=== PATIENT | male | born 1945 | race Caucasian/White ===

== ENCOUNTER 2018-08-10 08:31 | Emergency (ER) | payer MEDICARE, BC ==
[~2018-08-10] VITALS: Ht 195.6 cm; Wt 104.3 kg
[~2018-08-10 08:31] MED LIST: AMLO5; ASPI325; Altoprev20 MG; ELIQUIS5 MG; MAGOXI400
[2018-08-10 10:17] LABS: BASOPHILS ABSOLUTE AUTO 0.03 K/mm3 (0.00-0.23); BASOPHILS PERCENT AUTO 0 % (0-2); EOSINOPHILS ABSOLUTE AUTO 0.01 K/mm3 (0.00-0.68); EOSINOPHILS PERCENT AUTO 0 % (0-6); Hematocrit 44.3 % (37.0-53.0); Hemoglobin 14.9 g/dL (13.5-17.5); IMMATURE GRAN ABSOLUTE AUTO 0.03 K/mm3 (0.00-0.10); IMMATURE GRAN PERCENT AUTO 0 % (0-1); LYMPHOCYTES ABSOLUTE AUTO 0.85 K/mm3 (0.84-5.20); LYMPHOCYTES PERCENT AUTO 10 % (21-46); MONOCYTES ABSOLUTE AUTO 1.05 K/mm3 (0.16-1.47); MONOCYTES PERCENT AUTO 13 % (4-13); Mean Corpuscular HGB 30.8 pg (26.0-34.0); Mean Corpuscular HGB Conc 33.6 g/dL (31.5-36.5); Mean Corpuscular Volume 92 fL (80-100); Mean Platelet Volume 10.2 fL (9.1-12.4); NEUTROPHILS ABSOLUTE AUTO 6.33 K/mm3 (1.96-9.15); NEUTROPHILS PERCENT AUTO 76 % (41-73); Platelet Count 175 K/mm3 (150-400); RDW Coefficient Variation 12.8 % (11.7-14.2); RDW Standard Deviation 43.3 fL (35.1-46.3); Red Blood Cell Count 4.84 M/mm3 (4.30-5.90)
[2018-08-10 10:29] LABS: Alanine Aminotransfer (ALT/SGP 25 U/L (12-78); Albumin, Blood 3.5 g/dL (3.4-5.0); Albumin/Globulin Ratio 0.9 (0.8-1.8); Alk Phos 45 U/L (50-136); Anion Gap 9 mmol/L (6-16); Aspartate Aminotrans (AST/SGOT 19 U/L (12-37); Bilirubin, Total 1.4 mg/dL (0.1-1.0); Blood Urea Nitrogen 17 mg/dL (8-24); Bun/Creatinine Ratio 18.1 (12.0-20.0); CO2, Blood 23 mmol/L (21-32); Calcium, Blood 8.2 mg/dL (8.5-10.1); Chloride, Blood 105 mmol/L (98-108); Creatinine, Blood 0.94 mg/dL (0.60-1.20); Glomerular Filtration Rate >60 (60-); Glucose, Blood 101 mg/dL (70-99); Potassium, Blood 4.2 mmol/L (3.5-5.5); Sodium, Blood 137 mmol/L (136-145); Total Protein, Blood 7.5 g/dL (6.4-8.2)
== END 2018-08-10 12:28 | disposition home or self-care (01) ==
LOC: ER 08:31
PROVIDERS: Emergency Medicine
DX: M25.462 Effusion, left knee (principal); I48.91 Unspecified atrial fibrillation; Z79.899 Other long term (current) drug therapy; Z79.01 Long term (current) use of anticoagulants
CPT/HCPCS: 36415; 80053; 85025; 85651; 86140; 99283

== ENCOUNTER 2018-08-26 00:04 | Day surgery (SDC) | payer MEDICARE, BC ==
[~2018-08-26 00:04] MED LIST changes: -AMLO5; +AMLO5 PO; -Altoprev20 MG; +Altoprev20 MG PO; -ELIQUIS5 MG; +ELIQUIS5 MG PO; -MAGOXI400; +MAGOXI400 PO
[2018-08-27] MEDS ORDERED: OXYC5 PO (09:18)
[2018-08-27] MEDS ORDERED: BACL10 PO (09:19)
== END 2018-08-26 22:40 | disposition home or self-care (01) ==
LOC: ATC 00:04
DX: T84.54XA Infection and inflammatory reaction due to internal left knee prosthesis, initial encounter (principal); B95.5 Unspecified streptococcus as the cause of diseases classified elsewhere
CPT/HCPCS: 96365; J0696

== ENCOUNTER 2018-08-27 00:26 | Day surgery (SDC) | payer MEDICARE, BC ==
[2018-08-27] MEDS ORDERED: OXYC5 PO (09:18)
[2018-08-27] MEDS ORDERED: BACL10 PO (09:19)
[2018-09-03] MEDS ORDERED: BISA10S PR (10:40)
[2018-09-03] MEDS ORDERED: DULCOLAX STOOL100 MG PO (10:42)
== END 2018-08-27 17:15 | disposition home or self-care (01) ==
LOC: ATC 00:26
DX: T84.54XA Infection and inflammatory reaction due to internal left knee prosthesis, initial encounter (principal); I10 Essential (primary) hypertension
CPT/HCPCS: 96365; J0696

== ENCOUNTER 2018-08-28 00:25 | Day surgery (SDC) | payer MEDICARE, BC ==
[~2018-08-28 00:25] MED LIST changes: +BACL10 PO; +OXYC5 PO
[2018-09-03] MEDS ORDERED: BISA10S PR (10:40)
[2018-09-03] MEDS ORDERED: DULCOLAX STOOL100 MG PO (10:42)
== END 2018-08-28 09:55 | disposition home or self-care (01) ==
LOC: ATC 00:25
DX: T84.54XA Infection and inflammatory reaction due to internal left knee prosthesis, initial encounter (principal); B95.5 Unspecified streptococcus as the cause of diseases classified elsewhere
CPT/HCPCS: 96365; J0696

== ENCOUNTER 2018-08-29 00:18 | Day surgery (SDC) | payer MEDICARE, BC ==
[2018-08-29 11:39] LABS: BASOPHILS ABSOLUTE AUTO 0.06 K/mm3 (0.00-0.23); BASOPHILS PERCENT AUTO 1 % (0-2); EOSINOPHILS ABSOLUTE AUTO 0.23 K/mm3 (0.00-0.68); EOSINOPHILS PERCENT AUTO 3 % (0-6); Hematocrit 37.7 % (37.0-53.0); Hemoglobin 11.9 g/dL (13.5-17.5); IMMATURE GRAN ABSOLUTE AUTO 0.03 K/mm3 (0.00-0.10); IMMATURE GRAN PERCENT AUTO 0 % (0-1); LYMPHOCYTES ABSOLUTE AUTO 0.97 K/mm3 (0.84-5.20); LYMPHOCYTES PERCENT AUTO 13 % (21-46); MONOCYTES ABSOLUTE AUTO 0.89 K/mm3 (0.16-1.47); MONOCYTES PERCENT AUTO 12 % (4-13); Mean Corpuscular HGB 29.6 pg (26.0-34.0); Mean Corpuscular HGB Conc 31.6 g/dL (31.5-36.5); Mean Corpuscular Volume 94 fL (80-100); Mean Platelet Volume 9.2 fL (9.1-12.4); NEUTROPHILS ABSOLUTE AUTO 5.04 K/mm3 (1.96-9.15); NEUTROPHILS PERCENT AUTO 70 % (41-73); Platelet Count 472 K/mm3 (150-400); RDW Coefficient Variation 12.5 % (11.7-14.2); RDW Standard Deviation 43.5 fL (35.1-46.3); Red Blood Cell Count 4.02 M/mm3 (4.30-5.90); White Blood Cell Count 7.22 K/mm3 (4.00-11.30)
[2018-08-29 12:01] LABS: Alanine Aminotransfer (ALT/SGP 52 U/L (12-78); Albumin, Blood 2.7 g/dL (3.4-5.0); Albumin/Globulin Ratio 0.6 (0.8-1.8); Alk Phos 66 U/L (50-136); Anion Gap 7 mmol/L (6-16); Aspartate Aminotrans (AST/SGOT 25 U/L (12-37); Bilirubin, Total 0.4 mg/dL (0.1-1.0); Blood Urea Nitrogen 10 mg/dL (8-24); Bun/Creatinine Ratio 11.8 (12.0-20.0); CO2, Blood 28 mmol/L (21-32); Calcium, Blood 8.3 mg/dL (8.5-10.1); Chloride, Blood 103 mmol/L (98-108); Creatinine, Blood 0.84 mg/dL (0.60-1.20); Globulin, Blood 4.4 g/dL (2.2-4.0); Glomerular Filtration Rate >60 (60-); Glucose, Blood 100 mg/dL (70-99); Potassium, Blood 4.3 mmol/L (3.5-5.5); Sodium, Blood 138 mmol/L (136-145); Total Protein, Blood 7.1 g/dL (6.4-8.2)
[2018-09-03] MEDS ORDERED: BISA10S PR (10:40)
[2018-09-03] MEDS ORDERED: DULCOLAX STOOL100 MG PO (10:42)
== END 2018-08-29 11:33 | disposition home or self-care (01) ==
LOC: ATC 00:18
PROVIDERS: Internal Medicine Infectious Disease
DX: T84.54XA Infection and inflammatory reaction due to internal left knee prosthesis, initial encounter (principal); B95.5 Unspecified streptococcus as the cause of diseases classified elsewhere
CPT/HCPCS: 36592; 80053; 85025; 85651; 86140; 96365; J0696

== ENCOUNTER 2018-09-26 01:18 | Day surgery (SDC) | payer MEDICARE, BC ==
[~2018-09-26 01:18] MED LIST changes: +BENADRYL25 MG PO; +BISA10S PR; +DULCOLAX STOOL100 MG PO; +PSEU120ER PO
[2018-09-26] MEDS ORDERED: Ceftriaxone2 G1 IV (16:24)
[2018-09-26] MEDS ORDERED: AMLO5 PO (16:24)
== END 2018-09-26 16:37 | disposition home or self-care (01) ==
LOC: ATC 01:18
DX: T84.54XA Infection and inflammatory reaction due to internal left knee prosthesis, initial encounter (principal)
CPT/HCPCS: 96365; J0696

== ENCOUNTER 2018-09-27 00:28 | Day surgery (SDC) | payer MEDICARE, BC ==
[~2018-09-27 00:28] MED LIST changes: +Ceftriaxone2 G1 IV
== END 2018-09-27 22:47 | disposition home or self-care (01) ==
LOC: ATC 00:28
DX: T84.54XA Infection and inflammatory reaction due to internal left knee prosthesis, initial encounter (principal)
CPT/HCPCS: 96365; J0696

== ENCOUNTER 2021-02-28 08:19 | Day surgery (SDC) | payer MEDICARE, BC ==
[~2021-02-28] VITALS: Ht 195.6 cm; Wt 97.6 kg
[~2021-02-28 08:19] MED LIST changes: +ALBU90OI INH; +MAGNESIUM PO; +STOOL SOFTENER PO
--- NOTE | 2021-02-28 09:11 | NUR ---
Ambulatory in Day Surgery History, Chart, Medications and Allergies reviewed before start of procedure.Lungs clear T/O to Auscultation. Patient confirms NPO status and agrees with scheduled surgery. Pre-Op teaching done. Pt verbalizes understanding.
--- NOTE | 2021-02-28 12:54 | NUR ---
PT ARRIVED TO UNIT AT APROX 1245 FROM PACU S/P R TKA. RAQUEL WRAP TO RLE C/D/I, PT REPORTS FULL SENSATION IN BLE. RATES PAIN 3/10, APPEARS TO BE RESTING COMFORTABLY.
--- NOTE | 2021-02-28 17:23 | NUR ---
DISCHARGE PT DISCHARGED HOME FROM UNIT AT APROX 1645. PT GIVEN WRITTEN AND VERBAL DISCHARGE INSTRUCTIONS AND VERBALIZED UNDERSTANDING. WRITTEN RX FOR PAIN MEDICATION GIVEN TO , COPY IN CHART. PT TOLERATING PO WITH NO N/V, PAIN MANAGED 2/10 PAIN WITH PO MEDICATION. CLEARED BY PT. WHEELCHAIR TO CAR.
--- NOTE | 2021-03-02 10:10 | NUR ---
03/02/21 1009 Beba Paz VERIFICATIONS: EDIT CHART.
== END 2021-02-28 16:51 | disposition home or self-care (01) ==
LOC: ORSCMMR 08:19 → ORD 09:45 → SURS 12:28 → ORSCMMR 16:51
PROVIDERS: Orthopaedic Surgery
PROC: 0SRC0JA Replacement of Right Knee Joint with Synthetic Substitute, Uncemented, Open Approach (ICD-10-PCS; principal; 2021-02-28 09:45)
PROC: 8E0Y0CZ Robotic Assisted Procedure of Lower Extremity, Open Approach (ICD-10-PCS; principal; 2021-02-28 09:45)
DX: M17.11 Unilateral primary osteoarthritis, right knee (principal); I10 Essential (primary) hypertension; I48.91 Unspecified atrial fibrillation; Z79.01 Long term (current) use of anticoagulants; E78.5 Hyperlipidemia, unspecified; Z79.899 Other long term (current) drug therapy
CPT/HCPCS: 27447; S2900; 73560-RT; 97110; 97116; 97161; 97530; A9270; C1776; J0171; J0690; J0735; J1885; J2250; J2370; J2704; J2795; J3010; J7120

== ENCOUNTER 2021-07-21 17:14 | Emergency (ER) | payer MEDICARE, BC ==
[~2021-07-21] VITALS: Ht 195.6 cm; Wt 88.9 kg
[2021-07-21 17:54] LABS: BASOPHILS ABSOLUTE AUTO 0.05 K/mm3 (0.00-0.23); BASOPHILS PERCENT AUTO 1 % (0-2); EOSINOPHILS ABSOLUTE AUTO 0.12 K/mm3 (0.00-0.68); EOSINOPHILS PERCENT AUTO 2 % (0-6); Hematocrit 46.4 % (37.0-53.0); IMMATURE GRAN ABSOLUTE AUTO 0.01 K/mm3 (0.00-0.10); IMMATURE GRAN PERCENT AUTO 0 % (0-1); LYMPHOCYTES ABSOLUTE AUTO 1.42 K/mm3 (0.84-5.20); LYMPHOCYTES PERCENT AUTO 26 % (21-46); MONOCYTES ABSOLUTE AUTO 0.62 K/mm3 (0.16-1.47); MONOCYTES PERCENT AUTO 11 % (4-13); Mean Corpuscular HGB 29.2 pg (26.0-34.0); Mean Corpuscular HGB Conc 32.3 g/dL (31.5-36.5); Mean Corpuscular Volume 90 fL (80-100); NEUTROPHILS ABSOLUTE AUTO 3.23 K/mm3 (1.96-9.15); NEUTROPHILS PERCENT AUTO 59 % (41-73); Platelet Count 208 K/mm3 (150-400); RDW Coefficient Variation 14.7 % (11.7-14.2); RDW Standard Deviation 49.5 fL (35.1-46.3); Red Blood Cell Count 5.13 M/mm3 (4.30-5.90); White Blood Cell Count 5.45 K/mm3 (4.00-11.30)
[2021-07-21 18:07] LABS: Alanine Aminotransfer (ALT/SGP 39 U/L (12-78); Albumin, Blood 3.9 g/dL (3.4-5.0); Albumin/Globulin Ratio 1.1 (0.8-1.8); Alk Phos 81 U/L (50-136); Anion Gap 8 mmol/L (6-16); Aspartate Aminotrans (AST/SGOT 28 U/L (12-37); Bilirubin, Total 0.7 mg/dL (0.1-1.0); Blood Urea Nitrogen 23 mg/dL (8-24); Bun/Creatinine Ratio 28.7 (12.0-20.0); CO2, Blood 22 mmol/L (21-32); Calcium, Blood 9.3 mg/dL (8.5-10.1); Chloride, Blood 107 mmol/L (98-108); Globulin, Blood 3.6 g/dL (2.2-4.0); Glomerular Filtration Rate >60 (60-); Glucose, Blood 101 mg/dL (70-99); Potassium, Blood 4.2 mmol/L (3.5-5.5); Sodium, Blood 137 mmol/L (136-145); Total Protein, Blood 7.5 g/dL (6.4-8.2); Troponin I <0.015 ng/mL (0.000-0.040)
== END 2021-07-21 22:45 | disposition home or self-care (01) ==
LOC: ER 17:14
PROVIDERS: Physician Assistant
DX: R07.89 Other chest pain (principal); R00.0 Tachycardia, unspecified
CPT/HCPCS: 36415; 71046; 80053; 83880; 84484; 85025; 93005; 93010; 99285-25

== ENCOUNTER 2021-07-26 12:00 | Emergency (ER) | payer MEDICARE, BC ==
[~2021-07-26] VITALS: Ht 195.6 cm; Wt 88.9 kg
[2021-07-26] MEDS ORDERED: HYDROCODONE-AC1 EA13 PO (12:12)
[2021-07-26] MEDS ORDERED: LOVASTATIN20 MG PO (12:12)
[2021-07-26] MEDS ORDERED: ELIQUIS5 M3 PO (12:12)
[2021-07-26] MEDS ORDERED: Roxicodone5 MG PO (13:23)
== END 2021-07-26 13:32 | disposition home or self-care (01) ==
LOC: ER 12:00
DX: M54.5 Low back pain (principal); I48.91 Unspecified atrial fibrillation; Z79.01 Long term (current) use of anticoagulants; Z91.048 Other nonmedicinal substance allergy status; Z79.899 Other long term (current) drug therapy; Z87.81 Personal history of (healed) traumatic fracture; W19.XXXA Unspecified fall, initial encounter; Y92.39 Other specified sports and athletic area as the place of occurrence of the external cause
CPT/HCPCS: 72100; 72220; 99283-25; A9270